=== PATIENT | female | born 1940 | race Caucasian/White ===

== ENCOUNTER 2019-08-10 09:48 | Outpatient (CLI) | payer MEDICARE, SELFPAY ==
[2019-08-10 10:09] LABS: Hemoglobin A1C 6.9 % (<5.7)
[2019-08-10 10:52] LABS: Alanine Aminotransferase 33 U/L (14-59); Alkaline Phosphatase 90 U/L (46-116); Anion Gap 12.1 mmol/L (7-16); Aspartate Amino Transferase 34 U/L (15-37); Bilirubin,Total 0.5 mg/dL (0.00-1.00); Blood Urea Nitrogen 15 mg/dL (7-18); Calcium 9.6 mg/dL (8.5-10.1); Carbon Dioxide 30 mmol/L (21-32); Chloride 97 mmol/L (98-108); Cholesterol 157 mg/dL (0-200); Estimated Glomerular Filt Rate 58; Glucose 141 mg/dL (70-99); HDL Direct 68 mg/dL (40-60); LDL Cholesterol Calculated 63 mg/dL (<130); Osmolality Calculated 282 mOsm/kg (285-295); Potassium 4.1 mmol/L (3.5-5.1); Sodium 135 mmol/L (136-145); Total Protein 6.7 g/dL (6.4-8.2); Triglycerides 128 mg/dL (0-150)
== END 2019-08-10 09:49 | disposition home or self-care (01) ==
PROVIDERS: PCP Internal Medicine; Visit Provider Nurse Practitioner
DX: E78.5 Hyperlipidemia, unspecified (principal); E11.9 Type 2 diabetes mellitus without complications
CPT/HCPCS: 36415; 80053; 80061; 83036

== ENCOUNTER 2019-08-25 08:09 | Outpatient (CLI) | payer MEDICARE, BC, SELFPAY ==
--- NOTE | ~2019-08-25 | XR_ITS ---
XR knee LT 3V DATE: 08/25/2019 08:38 INDICATION: Knee pain TECHNIQUE: 3 views COMPARISON: 05/02/2018 left knee FINDINGS: Status post left knee arthroplasty with patellar resurfacing. There is moderate suprapatellar joint effusion. A popliteal cyst is suggested. No fracture or dislocation, periosteal reaction or bone destruction. IMPRESSION: Status post left knee arthroplasty with patellar resurfacing Moderate joint effusion, suspected popliteal cyst Reviewed, dictated and finalized at location B.
== END 2019-08-25 08:10 | disposition home or self-care (01) ==
LOC: CHSIMG 08:11
PROVIDERS: PCP Internal Medicine; Visit Provider Orthopaedic Surgery
DX: Z96.652 Presence of left artificial knee joint (principal)
CPT/HCPCS: 73562

== ENCOUNTER 2020-02-08 09:59 | Emergency (ER) | payer MEDICARE, BC, SELFPAY ==
[2020-02-08] VITALS (7 sets, daily range): BP systolic 110–136; BP diastolic 56–77; PULSE 94–111; RESP 8–21; TEMP 35.8; O2SAT 95–97
--- NOTE | ~2020-02-08 | XR_ITS ---
EXAMINATION: XR chest 1V portable EXAM DATE: 02/08/2020 10:41 INDICATION: cough, vomiting x 5 days. TECHNIQUE: Portable AP frontal chest x-ray was obtained. Comparison is made to prior examination from 08/23/2015. FINDINGS: The lungs are clear. There are no pleural effusions. Cardiomediastinal silhouette is norm al. There is no pneumothorax suspected. There are mild bony degenerative changes. IMPRESSION: No acute cardiopulmonary findings. Reviewed, dictated and finalized at location B. 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
--- NOTE | 2020-02-08 10:20 | ECG_ITS ---
Measurements Intervals [place] Rate: 110 P: 15 [place]: 120 QRS: -55 QRSD: 89 T: 54 QT: 328 QTc: 445 Interpretive Statements SINUS TACHYCARDIA LEFT AXIS DEVIATION POSSIBLE LEFT ATRIAL ENLARGEMENT INFERIOR INFARCT, AGE INDETERMINATE BASELINE ARTIFACT- II, III, AVR, AVL, AVF, V1-V3 ABNORMAL ECG Electronically Signed On 02-08-2020 10:54:34 SALES SUPPORT MANAGER by Morgan Fernandes D.O.
--- NOTE | 2020-02-08 10:46 | ED.WEAKNESS ---
HPI - Weakness General Chief complaint: Weakness Stated complaint: Week,can't eat,Sinus drainage, Sweats Time Seen by Provider: 02/08/20 10:25 Source: patient Mode of arrival: ambulatory Limitations: no limitations History of Present Illness HPI Narrative: 79-year-old woman with a history of type 2 diabetes, hypertension and dyslipidemia comes in today complaining of 5 days of vomiting, weakness, and sweats. She states that she has nasal congestion and a mild cough she thinks is from postnasal drainage. She has had nonbloody diarrhea for the last 2 or 3 days. she denies sick contacts, fever, recent antibiotics, shortness of breath, chest pain or pressure, abdominal pain, rash and dysuria. She states she has not been able to keep down any food for 5 days. MD Complaint: generalized weakness Onset (ago): day(s) (5) Duration: constant and progressively worsening Location: generalized Migration: none Severity: moderate Relieving factors: none Associated symptoms: nausea/vomiting Related Data Home Medications Medication Instructions Recorded Confirmed aspirin 81 mg tablet,delayed 81 mg PO DAILY 02/05/19 02/08/20 release calcium carbonate 600 mg(1,500 1 tablet PO DAILY 02/05/19 02/08/20 mg)-vitamin D3 800 unit chewable tablet cholecalciferol (vitamin D3) 25 1,000 unit PO DAILY 02/05/19 02/08/20 mcg (1,000 unit) capsule multivit with min-folic 1 tablet PO DAILY 02/05/19 02/08/20 acid-lutein 400 mcg-250 mcg chewable tablet Allergies Allergy/AdvReac Type Severity Reaction Status Date / Time No Known Allergies Allergy Verified 10/15/19 12:35 Review of Systems Constitutional: Constitutional: Denies chills, Denies fever(s) and Reports weakness Comments: Diaphoresis Eyes: Eyes: Denies change in vision and Denies photophobia ENT: Denies dysphagia, Reports nasal congestion and Denies sore throat Cardiovascular: Cardiovascular: Denies chest pain, Reports rapid heart rate and Denies radiating jaw, neck or arm pain Respiratory: Respiratory: Reports cough, Denies dyspnea and Denies wheezing Gastrointestinal: Gastrointestinal: Denies abdominal pain, Reports diarrhea, Reports nausea and Reports vomiting Genitourinary: Genitourinary: Denies nocturia and Denies dysuria Musculoskeletal: Musculoskeletal: Denies arthralgias and Denies joint swelling Integumentary/Breasts: Skin/Breast: Denies pruritus, Denies erythema and Denies rash Neurologic: Denies vertigo, Denies dizziness and Denies syncope Hematologic/Lymphatic: Hematologic/Lymphatic: Denies easy bleeding and Denies easy bruising Allergic/Immunologic: Allergic/Immunologic: Denies lip swelling and Denies tongue swelling PMFSH Past Medical History Medical History (Updated 02/08/20 @ 11:57 by Geoffrey Berrios MD) Depression Essential (primary) hypertension Gastro-esophageal reflux disease without esophagitis Hyperlipidemia Overweight Type 2 diabetes mellitus with other specified complication Vitamin D deficiency Surgical History Surgical History History of knee replacement S/P hardware removal Family History Family History Father Family history of malignant neoplasm Patient's father is Mother Patient's mother is in good health Other Family history of arthritis Hypertension Social History Social History Smoking status: Never smoker Alcohol intake: current Exam Const: General: alert Nutritional Appearance: obese Orientation/consciousness: patient oriented x3 Limitations: no limitations Other: mild acute distress HENMT: Head: normal to inspection Ears: external ears normal, TM's normal bilaterally and EAC's normal General nose exam: Normal nares present Face and sinus: normal facial exam Mouth: Yes moist mucous membranes Thro
[2020-02-08 10:51] LABS: Basophils Absolute Auto 0.02 K/mm3 (0.00-0.10); Basophils Percent Auto 0.3 % (0.0-1.0); Eosinophils Absolute Auto 0.06 K/mm3 (0.02-0.50); Immature Granulocyte Absolute 0.04 K/mm3 (0.00-0.00); Immature Granulocyte Percent A 0.7 % (0.0-0.0); Lymphocytes Absolute Auto 1.11 K/mm3 (1.10-4.50); Lymphocytes Percent Auto 18.5 % (18.0-42.0); Mean Corpuscular HGB Conc 33.3 g/dL (32.0-36.0); Mean Corpuscular Hemoglobin 28.7 pg (27.0-31.0); Mean Platelet Volume 8.6 fl (9.2-11.8); Monocytes Absolute Auto 0.44 K/mm3 (0.10-0.90); Monocytes Percent Auto 7.3 % (2.0-11.0); Neutrophils Absolute Auto 4.3 K/mm3 (1.7-7.2); Neutrophils Percent Auto 72.2 % (50.0-70.0); Platelet Count Result 169 K/mm3 (150-420); Red Blood Count 5.23 M/mm3 (4.20-5.40); Red Cell Distribution Width 12.9 % (11.6-14.4)
[2020-02-08 10:52] LABS: Add Urine Microscopic? YES; Appearance Urine Sl Cloudy (Clear); Bilirubin Urine 2+ (Negative); Blood Urine Negative (Negative); Color Urine Yellow (Yellow); Glucose Urine UA Negative (Negative); Ketones Urine 1+ (Negative); Leukocyte Esterase Ur 1+ LEU/UL (Negative); Nitrate Urine Negative (Negative); Protein Urine 1+ (Negative); Specific Grav Ur 1.025 (1.010-1.020); Urobilinogen Urine 0.2 mg/dL (0.2-1.0)
[2020-02-08 10:53] LABS: RBC Urine None seen /hpf (0-2)
[2020-02-08 10:54] LABS: Bacteria Urine 1+ /hpf; Renal Epithelial Cells Urine Few /hpf; Squamous Epithelial Cell Urine Few /hpf (Few)
--- NOTE | 2020-02-08 11:03 | PC.NURSE ---
Report given to Juan Giron
[2020-02-08 11:05] LABS: INR 0.9; Partial Thromboplastin Time 24.2 SEC (23.90-30.70); Prothrombin Time 10.4 Seconds (9.50-12.10)
[2020-02-08] MEDS: SODIUM CHLORIDE 0.9% IV 1,000 ML 999 ML IV CONT (11:05)
[2020-02-08 11:09] LABS: Lactic Acid Reflex 2.5 mmol/L (0.4-2.0)
[2020-02-08 11:10] LABS: Alanine Aminotransferase 55 U/L (14-59); Albumin Level 4.2 g/dL (3.4-5.0); Alkaline Phosphatase 91 U/L (46-116); Anion Gap 11 mmol/L (8-16); Aspartate Amino Transferase 57 U/L (15-37); Bilirubin,Total 0.7 mg/dL (0.00-1.00); Blood Urea Nitrogen 18 mg/dL (7-18); CRP 0.5 mg/dL (0.0-0.9); Calcium 9.6 mg/dL (8.5-10.1); Carbon Dioxide 29 mmol/L (21-32); Chloride 94 mmol/L (98-108); Estimated CRCL calculation 34 ml/min; Estimated Glomerular Filt Rate 40; Glucose 203 mg/dL (70-99); Lipase 168 U/L (73-393); Osmolality Calculated 285 mOsm/kg (285-295); Potassium 3.4 mmol/L (3.5-5.1); SARS-CoV-2 Ag Positive (Negative); Sodium 134 mmol/L (136-145); Total Protein 7.5 g/dL (6.4-8.2); Troponin I 6.7 ng/L (0.00-60.4)
[2020-02-08 11:24] LABS: Influenza Control Valid (Valid)
[2020-02-08] MEDS: ONDANSETRON HCL ODT 4 MG TABLET PO (11:45)
--- NOTE | 2020-02-08 12:06 | PC.NURSE ---
Pt drinking oral fluids. pt states she feels comfortably going home and will return with any worsening of symptoms or concerns
[2020-02-08 13:46] LABS: Reflex Lactic Acid Yes or No Add Lactic
== END 2020-02-08 12:14 | disposition home or self-care (01) ==
LOC: CHSED 10:04
PROVIDERS: Emergency Provider Emergency Medicine; PCP Internal Medicine
DX: U07.1 COVID-19 (principal); E86.0 Dehydration; I10 Essential (primary) hypertension; K21.9 Gastro-esophageal reflux disease without esophagitis; E78.5 Hyperlipidemia, unspecified; E11.9 Type 2 diabetes mellitus without complications; E55.9 Vitamin D deficiency, unspecified
CPT/HCPCS: 36415; 71045; 80053; 81001; 83605; 83690; 84484; 85025; 85610; 85730; 86140; 87040; 87086; 87426; 87804; 93005; 96360; 99284; A9270; J7030

== ENCOUNTER 2020-04-11 09:39 | Outpatient (CLI) | payer MEDICARE, BC, SELFPAY ==
[2020-04-11 10:04] LABS: MALB Creatinine Ratio 12.3 mg/g (0-30); Microalbumin Urine Random < 13.0 mg/L
[2020-04-11 10:08] LABS: Hemoglobin A1C 6.6 % (<5.7)
[2020-04-11 10:30] LABS: Alanine Aminotransferase 37 U/L (14-59); Albumin Level 4.1 g/dL (3.4-5.0); Alkaline Phosphatase 84 U/L (46-116); Anion Gap 11 mmol/L (8-16); Aspartate Amino Transferase 32 U/L (15-37); Bilirubin,Total 0.5 mg/dL (0.00-1.00); Blood Urea Nitrogen 18 mg/dL (7-18); Calcium 9.9 mg/dL (8.5-10.1); Carbon Dioxide 28 mmol/L (21-32); Chloride 97 mmol/L (98-108); Cholesterol 166 mg/dL (0-200); Estimated Glomerular Filt Rate > 60; Glucose 161 mg/dL (70-99); HDL Direct 72 mg/dL (40-60); LDL Cholesterol Calculated 61 mg/dL (<130); Osmolality Calculated 286 mOsm/kg (285-295); Potassium 4.1 mmol/L (3.5-5.1); Sodium 136 mmol/L (136-145); Total Protein 6.9 g/dL (6.4-8.2); Triglycerides 163 mg/dL (0-150)
== END 2020-04-11 09:40 | disposition home or self-care (01) ==
LOC: CHSLAB 09:43
PROVIDERS: PCP Internal Medicine; Visit Provider Internal Medicine
DX: E78.5 Hyperlipidemia, unspecified (principal); E11.69 Type 2 diabetes mellitus with other specified complication; I10 Essential (primary) hypertension; E66.9 Obesity, unspecified
CPT/HCPCS: 36415; 80053; 80061; 82043; 83036

== ENCOUNTER 2020-10-12 09:34 | Outpatient (CLI) | payer MEDICARE, SELFPAY ==
[2020-10-12 10:16] LABS: Hemoglobin A1C 6.8 % (<5.7)
[2020-10-12 10:53] LABS: Alanine Aminotransferase 41 U/L (14-59); Albumin Level 4.2 g/dL (3.4-5.0); Alkaline Phosphatase 97 U/L (46-116); Anion Gap 10 mmol/L (8-16); Aspartate Amino Transferase 29 U/L (15-37); Bilirubin,Total 0.4 mg/dL (0.00-1.00); Blood Urea Nitrogen 17 mg/dL (7-18); Calcium 9.6 mg/dL (8.5-10.1); Carbon Dioxide 30 mmol/L (21-32); Chloride 101 mmol/L (98-108); Cholesterol 181 mg/dL (0-200); Estimated Glomerular Filt Rate 57; Glucose 156 mg/dL (70-99); HDL Direct 67 mg/dL (40-60); LDL Cholesterol Calculated 79 mg/dL (<130); Osmolality Calculated 296 mOsm/kg (285-295); Potassium 4.2 mmol/L (3.5-5.1); Sodium 141 mmol/L (136-145); Total Protein 7.1 g/dL (6.4-8.2); Triglycerides 174 mg/dL (0-150)
[2020-10-15 06:45] LABS: Vitamin D 25 Hydroxy 38 ng/mL (30-100)
== END 2020-10-12 09:35 | disposition home or self-care (01) ==
LOC: CHSLAB 09:38
PROVIDERS: PCP Internal Medicine; Visit Provider Internal Medicine
DX: E11.69 Type 2 diabetes mellitus with other specified complication (principal); I10 Essential (primary) hypertension; E78.5 Hyperlipidemia, unspecified; E55.9 Vitamin D deficiency, unspecified
CPT/HCPCS: 36415; 80053; 80061; 82306; 83036

== ENCOUNTER 2020-10-21 10:50 | Outpatient (CLI) | payer MEDICARE, BC, SELFPAY ==
--- NOTE | ~2020-10-21 | MM_ITS ---
EXAMINATION: MM screening melina BI w deondre HISTORY: Screening TECHNIQUE: Craniocaudal and mediolateral oblique 3-D tomosynthesis images were obtained and synthetic 2-D images were generated. CAD analysis was submitted and interpreted. COMPARISON: Comparison to multiple prior studies sequentially, with oldest reviewed study dated 08/16. BREAST PARENCHYMAL COMPOSITION: There are scattered areas of fibroglandular density. FINDINGS: There is no evidence of suspicious mass, calcification, or architectural distortion to sugg est malignancy in either breast. There has been no suspicious interval change. IMPRESSION: 1. No mammographic evidence of malignancy. 2. Recommend routine screening mammography in one year. BI-RADS Category 1: Negative Reviewed, dictated and finalized at location A.
== END 2020-10-21 10:51 | disposition home or self-care (01) ==
LOC: CHSIMG 10:51
PROVIDERS: PCP Internal Medicine; Visit Provider Internal Medicine
DX: Z12.31 Encounter for screening mammogram for malignant neoplasm of breast (principal)
CPT/HCPCS: 77063; 77067

== ENCOUNTER 2020-10-25 10:42 | Outpatient (CLI) | payer MEDICARE, BC, SELFPAY ==
--- NOTE | ~2020-10-25 | XR_ITS ---
EXAMINATION: XR shoulder RT min 2V EXAM DATE: 10/25/2020 11:21 INDICATION: M79.603 - Pain in arm, unspecified . No known recent injury. TECHNIQUE: The following right shoulder projections obtained: frontal projection with internal rotati on, frontal projection with external rotation, Grashey, and scapular Y view (4+ views). Correlation i s made to contralateral shoulder same date. FINDINGS: No evidence of right shoulder rotator cuff calcific tendinosis. There is moderate glenoh umeral joint, moderate acromioclavicular joint primary osteoarthritis. There are no acute fractures o r dislocations identified. There is no subcutaneous gas. The soft tissue is unremarkable. There a re no radiopaque foreign bodies. IMPRESSION: Moderate right shoulder osteoarthritis. Reviewed, dictated and finalized at location A.
--- NOTE | ~2020-10-25 | XR_ITS ---
EXAMINATION: XR shoulder LT min 2V EXAM DATE: 10/25/2020 11:21 INDICATION: No known recent injury provided at this time. Pain of the left shoulder. TECHNIQUE: The following left shoulder projections obtained: frontal projection with internal rotatio n, frontal projection with external rotation, Grashey, and scapular Y view (4+ views). Correlation is made to contralateral shoulder same date. FINDINGS: No evidence of left shoulder rotator cuff calcific tendinosis. There is mild to moderate glenohumeral joint, mild to moderate acromioclavicular joint primary osteoarthritis. There are no ac sindy fractures or dislocations identified. There is no subcutaneous gas. The soft tissue is unremark able. There are no radiopaque foreign bodies. IMPRESSION: Mild to moderate left shoulder osteoarthritis. Reviewed, dictated and finalized at location A.
[2020-10-25 11:41] LABS: Creatine Kinase 42 U/L (26-192)
[2020-10-25 13:31] LABS: CRP < 0.2 mg/dL (0.0-0.9)
[2020-10-28 22:41] LABS: Aldolase 3.2 U/L (<=8.1)
== END 2020-10-25 10:43 | disposition home or self-care (01) ==
LOC: CHSLAB 10:45
PROVIDERS: PCP Internal Medicine; Visit Provider Internal Medicine
DX: M79.10 Myalgia, unspecified site (principal); M79.603 Pain in arm, unspecified
CPT/HCPCS: 36415; 73030; 82085; 82550; 86140

== ENCOUNTER 2020-10-31 10:49 | Outpatient (RCR) | payer MEDICARE, BC, SELFPAY ==
--- NOTE | 2020-10-31 11:44 | PTOPEVAL ---
Thank you for referring Judy Randle to [facility].? The patient is scheduled to be seen for therapy? ____x/week for ___ weeks. Please review, sign, date and return this plan of care TISH. I agree with and certify that the following plan of care is medically necessary. Referring Physician Date Admitting Provider: Attending Provider: Gurpreet Vines DO Referring Provider: *PT Outpatient Evaluation Start: 10/31/20 11:06 Freq: Status: Active Protocol: Document 10/31/20 11:07 [facility] (Rec: 10/31/20 11:43 [facility] [id number]) Therapy Assessment Status Assessment Status Assessment Status Evaluation Outpatient Past Medical History Reproductive History Hx Post Menopausal Yes Evaluation Information Problem Diagnosis shoulder pain, arm pain, neck pain Onset 10/27/20 Additional Evaluation Detail quick dash = 36% functionally declined Subjective Information patient reports she has been Query Text:As Reported By Patient/ having pain in the arms (left Family more than the R) for about 2 months. she reports she has difficulty reaching for her seatbelt, doing her hair, and pulling her shirt off to undress. she reports when does these activities she has pain in the lateral shoulder/arm. she reports her pain is worse through the day. she reports for the first time this past weekend she had pain radiate into the head (back of head) - dull aches in random spots. Prior Level of Function Comments Additional Prior Level of Function prior to a few months ago, no Comments issues in the shoulder/arms/ head. she reports no injury. she reports change in activity . she reports she has recently had blood work done and was negative for any abnormal results/new changes. Pain Assessment Timing of Pain Assessment Timing of Pain Assessment Assessment Pain Scale Pain Scale Used Numeric (1 - 10) Self Report Pain Assessment Shoulder(s) Reported Pain Level 5 Pain Frequency Acute,Continuous Greatest Pain Intensity 8 Pain Score Pain Score 5: Self Report Interventions Used Interventions Used By Clinicians Micheline
--- NOTE | 2020-10-31 12:21 | PTOPEVAL ---
Thank you for referring Judy Randle to [facility] [place].? The patient is scheduled to be seen for therapy? ____x/week for ___ weeks. Please review, sign, date and return this plan of care TISH. I agree with and certify that the following plan of care is medically necessary. Referring Physician Date Admitting Provider: Attending Provider: Gurpreet Vines DO Referring Provider: *PT Outpatient Evaluation Start: 10/31/20 11:06 Freq: Status: Active Protocol: Document 10/31/20 11:07 [facility] (Rec: 10/31/20 11:43 [facility] [id number]) Therapy Assessment Status Assessment Status Assessment Status Evaluation Outpatient Past Medical History Reproductive History Hx Post Menopausal Yes Evaluation Information Problem Diagnosis shoulder pain, arm pain, neck pain Onset 10/27/20 Additional Evaluation Detail quick dash = 36% functionally declined Subjective Information patient reports she has been Query Text:As Reported By Patient/ having pain in the arms (left Family more than the R) for about 2 months. she reports she has difficulty reaching for her seatbelt, doing her hair, and pulling her shirt off to undress. she reports when does these activities she has pain in the lateral shoulder/arm. she reports her pain is worse through the day. she reports for the first time this past weekend she had pain radiate into the head (back of head) - dull aches in random spots. Prior Level of Function Comments Additional Prior Level of Function prior to a few months ago, no Comments issues in the shoulder/arms/ head. she reports no injury. she reports change in activity . she reports she has recently had blood work done and was negative for any abnormal results/new changes. Pain Assessment Timing of Pain Assessment Timing of Pain Assessment Assessment Pain Scale Pain Scale Used Numeric (1 - 10) Self Report Pain Assessment Shoulder(s) Reported Pain Level 5 Pain Frequency Acute,Continuous Greatest Pain Intensity 8 Pain Score Pain Score 5: Self Report Interventions Used Interventions Used By Clinicians Micheline
--- NOTE | 2020-11-17 17:50 | PTOPEVAL ---
Thank you for referring Judy Randle to [facility].? The patient is scheduled to be seen for therapy? ____x/week for ___ weeks. Please review, sign, date and return this plan of care TISH. I agree with and certify that the following plan of care is medically necessary. Referring Physician Date Admitting Provider: Attending Provider: Gurpreet Vines DO Referring Provider: *PT Outpatient Evaluation Start: 10/31/20 11:06 Freq: Status: Active Protocol: Document 11/17/20 17:03 [facility] (Rec: 11/17/20 17:50 [facility] [id number]) Therapy Assessment Status Assessment Status Assessment Status Progress Outpatient Past Medical History Reproductive History Hx Post Menopausal Yes Evaluation Information Problem Diagnosis shoulder pain, arm pain, neck pain Onset 10/27/20 Subjective Information patient reports she feels Query Text:As Reported By Patient/ Good this date. she reports Family pain only with certain movements now of the L shoulder. she reports fatigue in the L shoulder with lifting . she reports she struggles to reach behind her head. Pain Assessment Timing of Pain Assessment Timing of Pain Assessment Assessment Pain Scale Pain Scale Used Numeric (1 - 10) Self Report Pain Assessment Shoulder(s) Reported Pain Level 0 Greatest Pain Intensity 2 Pain Score Pain Score 0: Self Report Interventions Used Interventions Used By Clinicians Activity or ADL's,Education, Electrical Stimulation, Exercise,Heat,Manual Therapy Techniques Upper Extremity Range of Motion Scapular/ Shoulder Range of Motion Left Shoulder Flexion - Active 155 Shoulder Lateral Rotation - Active 80 Upper Extremity Muscle Strength Testing Scapular/Shoulder Left Shoulder Flexion Strength 4+ Good + Shoulder Abduction Strength 4+ Good + Shoulder Medial Rotation Strength 5 Normal Shoulder Lateral Rotation Strength 4+ Good + General Exercise General Exercises Exercise Description -5 minutes passive L shoulder Query Text:Record Sets, Reps, ROM Resistance, and Position -bicep curls 3lb x25 -bent over row 6lb x20 -standing shoulder flex/scap 2lb x 20 ea -Tband scap retraction green x 20 -tband extension green x 20 -pulleys x 5 min
== END 2020-12-01 13:26 | disposition home or self-care (01) ==
LOC: CHSPT 10:49
PROVIDERS: Visit Provider Internal Medicine
DX: S43.499A Other sprain of unspecified shoulder joint, initial encounter (principal); S46.819A Strain of other muscles, fascia and tendons at shoulder and upper arm level, unspecified arm, initial encounter
CPT/HCPCS: 97014; 97110; 97161; G0283

== ENCOUNTER 2020-11-22 11:15 | Outpatient (CLI) | payer MEDICARE, SELFPAY ==
[2020-11-22 11:28] LABS: Basophils Absolute Auto 0.06 K/mm3 (0.00-0.10); Basophils Percent Auto 0.7 % (0.0-1.0); Eosinophils Absolute Auto 0.18 K/mm3 (0.02-0.50); Eosinophils Percent Auto 2.2 % (1.0-6.0); Hemoglobin 14.5 g/dL (11.7-13.8); Immature Granulocyte Absolute 0.03 K/mm3 (0.00-0.00); Immature Granulocyte Percent A 0.4 % (0.0-0.0); Lymphocytes Absolute Auto 2.45 K/mm3 (1.10-4.50); Lymphocytes Percent Auto 29.6 % (18.0-42.0); Mean Corpuscular HGB Conc 33.7 g/dL (32.0-36.0); Mean Corpuscular Hemoglobin 28.8 pg (27.0-31.0); Mean Corpuscular Volume 85.5 fL (78.0-102.0); Mean Platelet Volume 8.2 fl (9.2-11.8); Monocytes Absolute Auto 0.66 K/mm3 (0.10-0.90); Neutrophils Absolute Auto 4.9 K/mm3 (1.7-7.2); Neutrophils Percent Auto 59.1 % (50.0-70.0); Platelet Count Result 267 K/mm3 (150-420); Red Blood Count 5.03 M/mm3 (4.20-5.40); Red Cell Distribution Width 12.2 % (11.6-14.4); White Blood Count 8.3 K/mm3 (4.8-10.8)
== END 2020-11-22 11:16 | disposition home or self-care (01) ==
LOC: CHSLAB 11:18
PROVIDERS: PCP Internal Medicine; Visit Provider Internal Medicine
DX: R53.83 Other fatigue (principal)
CPT/HCPCS: 36415; 85025

== ENCOUNTER 2021-04-19 11:19 | Outpatient (CLI) | payer MEDICARE, SELFPAY ==
[2021-04-19 11:55] LABS: Hemoglobin A1C 7.1 % (<5.7)
[2021-04-19 12:16] LABS: Alanine Aminotransferase 39 U/L (14-59); Albumin Level 4.1 g/dL (3.4-5.0); Alkaline Phosphatase 92 U/L (46-116); Anion Gap 9 mmol/L (8-16); Aspartate Amino Transferase 30 U/L (15-37); Bilirubin,Total 0.5 mg/dL (0.00-1.00); Blood Urea Nitrogen 15 mg/dL (7-18); Calcium 9.5 mg/dL (8.5-10.1); Carbon Dioxide 29 mmol/L (21-32); Chloride 100 mmol/L (98-108); Cholesterol 175 mg/dL (0-200); Estimated Glomerular Filt Rate > 60; Glucose 166 mg/dL (70-99); HDL Direct 70 mg/dL (40-60); LDL Cholesterol Calculated 73 mg/dL (<130); Osmolality Calculated 290 mOsm/kg (285-295); Potassium 4.1 mmol/L (3.5-5.1); Sodium 138 mmol/L (136-145); Thyroid Stimulating Hormone 1.29 uIU/mL (0.36-3.74); Total Protein 6.8 g/dL (6.4-8.2); Triglycerides 158 mg/dL (0-150)
== END 2021-04-19 11:20 | disposition home or self-care (01) ==
LOC: CHSLAB 11:21
PROVIDERS: PCP Internal Medicine; Visit Provider Internal Medicine
DX: E11.69 Type 2 diabetes mellitus with other specified complication (principal); I10 Essential (primary) hypertension; E66.9 Obesity, unspecified; E78.5 Hyperlipidemia, unspecified; R53.83 Other fatigue
CPT/HCPCS: 36415; 80053; 80061; 83036; 84443

== ENCOUNTER 2021-10-02 13:42 | Emergency (ER) | payer MEDICARE, BC, SELFPAY ==
--- NOTE | ~2021-10-02 | XR_ITS ---
EXAMINATION: XR chest 1V portable INDICATION: Shortness of breath TECHNIQUE: Portable AP chest at 1439 hours COMPARISON: 02/08/2020 FINDINGS: There are minimal airspace opacities in the left lung base. No pleural effusion or pneumoth orax. The cardiomediastinal silhouette is normal. There is moderate osteoarthritis of the shoulders. IMPRESSION: 1. Minimal airspace opacities of the left lung base, consistent with atelectasis versus pneumonia. Reviewed, dictated and finalized at location A. IMPRESSION: 1. Minimal airspace opacities of the left lung base, consistent with atelectasi s versus pneumonia.
[2021-10-02 13:59] VITALS: BP 156/68; PULSE 106; RESP 16; TEMP 35.7; O2SAT 99
--- NOTE | 2021-10-02 14:13 | ED.GENADULT ---
HPI - General Adult General Chief complaint: Urogenital-Female Stated complaint: Urinary issue History of Present Illness HPI narrative: This is an 81-year-old female, NAD of the chief complaint of feeling like shit. Patient states since Saturday she has been feeling fatigued with decreased oral intake. At Saturday night she noticed that throughout the night she had increased urinary urgency and frequency and frequently cannot make it to the bathroom in time she urinated. When she woke this morning she did have 3-4 episodes of non-bloody diarrhea. She denies shortness of breath, chest pain, fever, chills, productive cough, abdominal pain. Patient denies sick contacts at home. She has been vaccinated against COVID with multiple blisters. She has history of UTIs. Related Data Home Medications Medication Instructions Recorded Confirmed aspirin 81 mg tablet,delayed 81 mg PO DAILY 02/05/19 10/02/21 release calcium carbonate 600 mg-vitamin 1 tablet PO DAILY 02/05/19 10/02/21 D3 20 mcg (800 unit) chewable tablet (Caltrate 600 plus D) cholecalciferol (vitamin D3) 25 1,000 unit PO DAILY 02/05/19 10/02/21 mcg (1,000 unit) capsule (Vitamin D3) multivit with min-folic 1 tablet PO DAILY 02/05/19 10/02/21 acid-lutein 400 mcg-250 mcg chewable tablet (Centrum Silver) Allergies Allergy/AdvReac Type Severity Reaction Status Date / Time No Known Allergies Allergy Verified 10/02/21 14:10 Review of Systems Review of Systems: CONSTITUTIONAL: Denies night sweats. EYES: No eye pain ENT: Denies rhinorrhea CARDIOVASCULAR: Denies palpitations RESPIRATORY: Denies hemoptysis GASTROINTESTINAL: Denies hematemesis GENITOURINARY: Denies hematuria. SKIN: Denies rash MUSCULOSKELETAL: Denies myalgia. NEUROLOGIC: Denies weakness. PSYCHIATRIC: Denies delusions PMFSH Past Medical History Medical History Depression Essential (primary) hypertension Gastro-esophageal reflux disease without esophagitis Hyperlipidemia Overweight Type 2 diabetes mellitus with other specified complication Vitamin D deficiency Surgical History Surgical History History of knee replacement S/P hardware removal Family History Family History Father Family history of malignant neoplasm Patient's father is Mother Patient's mother is in good health Other Family history of arthritis Hypertension Social History Social History Smoking status: Never smoker Second hand tobacco smoke exposure: Yes Alcohol intake: current Alcohol use details: occasional Substance use: never Substance use type: does not use Exam Narrative: APPEARANCE: Patient appears her stated age. She is planned for later in the interview. Head atraumatic. EYES: PERRLA/EOMI, NOSE: Normal no drainage NECK: Supple, Trachea midline RESPIRATORY: CTAB, No increased work of breathing. CARDIOVASCULAR: S1S2 appreciated ABDOMINAL: Soft, nontender, nondistended, : no suprapubic tenderness, no CVA tenderness MUSCULOSKELETAl: No obvious deformities NEURO: Alert. Moving 4/4 extremities SKIN:: Clammy PSYCHIATRIC: Normal affect Course Vital Signs Vital signs: Vital Signs Temperature 96.3 F L 10/02/21 13:59 Pulse Rate 106 H 10/02/21 13:59 Respiratory Rate 16 10/02/21 13:59 Blood Pressure 156/68 H 10/02/21 13:59 Pulse Oximetry 99 10/02/21 13:59 Oxygen Delivery Room Air 10/02/21 13:59 Temperature 96.3 F L 10/02/21 13:59 Pulse Rate 106 H 10/02/21 13:59 Respiratory Rate 16 10/02/21 13:59 Blood Pressure 156/68 H 10/02/21 13:59 Pulse Oximetry 99 10/02/21 13:59 Oxygen Delivery Room Air 10/02/21 13:59 Medical Decision Making MDM Narrative Medical decision making narrativ
--- NOTE | 2021-10-02 14:17 | ECG_ITS ---
Measurements Intervals [place] Rate: 93 P: 37 [place]: 142 QRS: -35 QRSD: 85 T: 24 QT: 339 QTc: 423 Interpretive Statements SINUS RHYTHM LEFT AXIS DEVIATION [QRS AXIS < -30] PATTERN CONSISTENT WITH PULMONARY DISEASE Cannot rule out inferior infarction ABNORMAL EKG Electronically Signed On 10-03-2021 8:41:25 CDT by Vamsi Edge M.D.
[2021-10-02 14:31] LABS: Basophils Absolute Auto 0.04 K/mm3 (0.00-0.10); Basophils Percent Auto 0.4 % (0.0-1.0); Eosinophils Absolute Auto 0.04 K/mm3 (0.02-0.50); Eosinophils Percent Auto 0.4 % (1.0-6.0); Hematocrit 39.9 % (35.0-42.0); Hemoglobin 13.6 g/dL (11.7-13.8); Immature Granulocyte Absolute 0.06 K/mm3 (0.00-0.00); Immature Granulocyte Percent A 0.7 % (0.0-0.0); Lymphocytes Absolute Auto 1.08 K/mm3 (1.10-4.50); Lymphocytes Percent Auto 11.8 % (18.0-42.0); Mean Corpuscular HGB Conc 34.1 g/dL (32.0-36.0); Mean Corpuscular Hemoglobin 29.3 pg (27.0-31.0); Mean Platelet Volume 8.5 fl (9.2-11.8); Monocytes Absolute Auto 0.89 K/mm3 (0.10-0.90); Monocytes Percent Auto 9.8 % (2.0-11.0); Neutrophils Percent Auto 76.9 % (50.0-70.0); Platelet Count Result 199 K/mm3 (150-420); Red Blood Count 4.64 M/mm3 (4.20-5.40); Red Cell Distribution Width 12.4 % (11.6-14.4); White Blood Count 9.1 K/mm3 (4.8-10.8)
[2021-10-02 14:40] LABS: Anion Gap 9 mmol/L (8-16); Blood Urea Nitrogen 15 mg/dL (7-18); Calcium 9.2 mg/dL (8.5-10.1); Carbon Dioxide 27 mmol/L (21-32); Chloride 93 mmol/L (98-108); Estimated Glomerular Filt Rate 49; Glucose 214 mg/dL (70-99); Osmolality Calculated 274 mOsm/kg (285-295); Potassium 3.3 mmol/L (3.5-5.1); Sodium 129 mmol/L (136-145)
[2021-10-02 14:48] LABS: SARS-CoV-2 Ag Negative (Negative)
[2021-10-02] MEDS: SODIUM CHLORIDE 0.9% IV 1,000 ML 999 ML IV CONT (14:48)
[2021-10-02 15:34] LABS: Add Urine Microscopic? YES; Appearance Urine Turbid (Clear); Bilirubin Urine 2+ (Negative); Blood Urine 2+ (Negative); Color Urine Yellow (Yellow); Glucose Urine UA Trace (Negative); Ketones Urine Trace (Negative); Leukocyte Esterase Ur 2+ LEU/UL (Negative); Nitrate Urine Positive (Negative); Protein Urine 2+ (Negative); Specific Grav Ur >= 1.030 (1.010-1.020); pH Urine 5.5 (5.0-8.0)
[2021-10-02 15:37] LABS: Bacteria Urine 2+ /hpf; Renal Epithelial Cells Urine Few /hpf; Squamous Epithelial Cell Urine Few /hpf (Few); WBC Urine >75 /hpf (0-3)
[2021-10-02] MEDS: POTASSIUM CHLORIDE 20 MEQ TABLET 40 MEQ PO (15:52)
[2021-10-02] MEDS: CEPHALEXIN 500 MG CAPSULE PO (15:53)
[2021-10-02 16:11] VITALS: BP 115/80; PULSE 94; RESP 16; TEMP 36.4; O2SAT 98
--- NOTE | 2021-10-04 17:45 | PC.NURSE ---
final urine culture report of greater than 100,000 cfu e. coli noted. pt was given keflex and as per Dr Knutson no further tx needed.
== END 2021-10-02 16:16 | disposition home or self-care (01) ==
PROVIDERS: Emergency Provider Emergency Medicine; PCP Internal Medicine
DX: N39.0 Urinary tract infection, site not specified (principal); E86.0 Dehydration; E87.6 Hypokalemia; R19.7 Diarrhea, unspecified; Z20.822 Contact with and (suspected) exposure to COVID-19; I10 Essential (primary) hypertension; K21.9 Gastro-esophageal reflux disease without esophagitis; E78.5 Hyperlipidemia, unspecified; E11.9 Type 2 diabetes mellitus without complications; E55.9 Vitamin D deficiency, unspecified
CPT/HCPCS: 36415; 71045; 80048; 81001; 85025; 87077; 87086; 87088; 87186; 87426; 93005; 96360; 99283; A9270; C9803; J7030

== ENCOUNTER 2021-10-28 09:49 | Outpatient (CLI) | payer MEDICARE, SELFPAY ==
[2021-10-28 10:22] LABS: Basophils Absolute Auto 0.05 K/mm3 (0.00-0.10); Basophils Percent Auto 0.7 % (0.0-1.0); Eosinophils Absolute Auto 0.27 K/mm3 (0.02-0.50); Eosinophils Percent Auto 3.8 % (1.0-6.0); Hematocrit 41.8 % (35.0-42.0); Hemoglobin 13.8 g/dL (11.7-13.8); Immature Granulocyte Absolute 0.03 K/mm3 (0.00-0.00); Immature Granulocyte Percent A 0.4 % (0.0-0.0); Lymphocytes Absolute Auto 2.95 K/mm3 (1.10-4.50); Lymphocytes Percent Auto 41.7 % (18.0-42.0); Mean Corpuscular Hemoglobin 28.6 pg (27.0-31.0); Mean Corpuscular Volume 86.7 fL (78.0-102.0); Mean Platelet Volume 8.7 fl (9.2-11.8); Monocytes Absolute Auto 0.53 K/mm3 (0.10-0.90); Monocytes Percent Auto 7.5 % (2.0-11.0); Neutrophils Absolute Auto 3.2 K/mm3 (1.7-7.2); Neutrophils Percent Auto 45.9 % (50.0-70.0); Platelet Count Result 279 K/mm3 (150-420); Red Blood Count 4.82 M/mm3 (4.20-5.40); Red Cell Distribution Width 12.7 % (11.6-14.4); White Blood Count 7.1 K/mm3 (4.8-10.8)
[2021-10-28 10:30] LABS: Hemoglobin A1C 6.7 % (<5.7)
[2021-10-28 10:44] LABS: Alanine Aminotransferase 28 U/L (14-59); Alkaline Phosphatase 95 U/L (46-116); Anion Gap 10 mmol/L (8-16); Aspartate Amino Transferase 25 U/L (15-37); Bilirubin,Total 0.6 mg/dL (0.00-1.00); Blood Urea Nitrogen 16 mg/dL (7-18); Calcium 9.6 mg/dL (8.5-10.1); Carbon Dioxide 28 mmol/L (21-32); Chloride 96 mmol/L (98-108); Cholesterol 155 mg/dL (0-200); Estimated Glomerular Filt Rate 56; Glucose 149 mg/dL (70-99); HDL Direct 70 mg/dL (40-60); LDL Cholesterol Calculated 56 mg/dL (<130); Magnesium 1.7 mg/dL (1.8-2.4); NT Pro B Type Natriuretic Pept 63 pg/mL (0-450); Osmolality Calculated 282 mOsm/kg (285-295); Potassium 3.8 mmol/L (3.5-5.1); Sodium 134 mmol/L (136-145); Thyroid Stimulating Hormone 1.43 uIU/mL (0.36-3.74); Triglycerides 147 mg/dL (0-150)
== END 2021-10-28 09:50 | disposition home or self-care (01) ==
LOC: CHSLAB 09:52
PROVIDERS: PCP Internal Medicine; Visit Provider Internal Medicine
DX: E87.6 Hypokalemia (principal); I10 Essential (primary) hypertension; E11.9 Type 2 diabetes mellitus without complications; R60.9 Edema, unspecified; R06.00 Dyspnea, unspecified
CPT/HCPCS: 36415; 80053; 80061; 83036; 83735; 83880; 84443; 85025

== ENCOUNTER 2021-11-18 10:18 | Outpatient (CLI) | payer MEDICARE, SELFPAY ==
[2021-11-18 11:35] LABS: Add Urine Microscopic? YES; Appearance Urine Clear (Clear); Bilirubin Urine Negative (Negative); Blood Urine Negative (Negative); Color Urine Yellow (Yellow); Glucose Urine UA Negative (Negative); Ketones Urine Negative (Negative); Leukocyte Esterase Ur 1+ (Negative); Nitrate Urine Negative (Negative); Protein Urine Negative (Negative); Urobilinogen Urine 0.2 mg/dL (0.2-1.0)
[2021-11-18 11:40] LABS: RBC Urine None seen /hpf (0-2)
[2021-11-18 11:41] LABS: Bacteria Urine 1+ /hpf; Squamous Epithelial Cell Urine Moderate /hpf (Few)
== END 2021-11-18 10:19 | disposition home or self-care (01) ==
LOC: CHSLAB 10:20
PROVIDERS: PCP Internal Medicine; Visit Provider Internal Medicine
DX: E83.51 Hypocalcemia (principal); R60.9 Edema, unspecified; I10 Essential (primary) hypertension; E11.9 Type 2 diabetes mellitus without complications
CPT/HCPCS: 81001

== ENCOUNTER 2021-12-20 10:11 | Outpatient (CLI) | payer MEDICARE, BC, SELFPAY ==
--- NOTE | ~2021-12-20 | XR_ITS ---
XR lumbar spine 2-3V DATE: 12/20/2021 10:41 INDICATION: Low back pain radiating to right buttock for one week TECHNIQUE: AP, lateral, coned lateral lumbosacral views COMPARISON: None FINDINGS: There is mild levo scoliosis of the lumbar spine. There is severe degenerative disc disease throughout the lumbar and lower cervical spine with severe loss of interspace height, vacuum phenomenon and degenerative spurring. No fracture or bone destruction is evident. The lumbar and included lower thoracic pedicles are intac t. The sacroiliac joints are intact. Extensive abdominal aortic calcification without apparent aneurysm. 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
--- NOTE | ~2021-12-20 | XR_ITS ---
XR chest 2V DATE: 12/20/2021 10:42 INDICATION: Abnormal 10/02/2021 chest radiographic TECHNIQUE: PA and lateral views COMPARISON: 10/02/2021 portable AP chest FINDINGS: Normal heart size. Minimal aortic unfolding. Abdominal aortic calcification. No hilar or mediastinal enlargement. No pulmonary infiltrate or consolidation, pleural effusion or pulmonary vascular congestion or pneumo thorax. Diffuse osteopenia. Mild degenerative spurring of the thoracic spine. Multilevel degenerative disc di sease of the lumbar spine. IMPRESSION: No active cardiac pulmonary disease Reviewed, dictated and finalized at location A.
== END 2021-12-20 10:12 | disposition home or self-care (01) ==
PROVIDERS: PCP Internal Medicine; Visit Provider Internal Medicine
DX: R91.8 Other nonspecific abnormal finding of lung field (principal); M54.50 Low back pain, unspecified
CPT/HCPCS: 71046; 72100

== ENCOUNTER 2021-12-28 10:50 | Outpatient (RCR) | payer MEDICARE, BC, SELFPAY ==
--- NOTE | 2021-12-28 11:55 | PTOPEVAL1 ---
Assessment and note entered by JT File, PT Evaluation Information Assessment Status Evaluation Diagnosis R L5 Radiculopathy Onset 12/21/21 Subjective Information patient reports she has been having pain in the R buttock and down the R LE for about 3 weeks. she reports no injury at the time of pain beginning. she reports she did have a fall about 1 year ago. she reports she has increased pain in the R buttock and LE when she gets out of bed from laying flat on her back. she reports getting up from sitting is painful too, but less than getting out of bed. she reports it has been getting better over the past few weeks noting not as constant pain and less intense pain. she reports she was put on predisone does pack for 5 days beginning on 12/19/21. Reported Pain Level Pain Score 2: Self Report Assessment PT Clinical Summary mrs. vargas presents to skilled PT services for evaluation and treatment of R LE pain. she presents this date with signs and symptoms consistent with referring diagnosis of R L5 radiculopathy. she would do well to attend and participate in skilled PT services to improve her objective/functional deficits and progress towards a return to her prior level functional activity performance/quality of life. Plan of Care Interventions Electrical Stimulation,Gait Training,Hot Pack/Cold Pack,Manual Therapy,Neuro Re-education,Patient/ Caregiver Educati,Therapeutic Activities, Therapeutic Exercise PT Services Indicated Yes Treatment Frequency and 3x weekly for 12 visits Duration These treatments will address the objective and functional deficits as defined above. The patient will be advanced safely and appropriately in order for the patient to progress towards his/her prior level of function. Additional exercises will be introduced and as well as a comprehensive home exercise program upon discharge, if needed, ?to ensure carryover of functional gains achieved in the clinic. This treatment plan has been reviewed and agreement upon by the patient.
--- NOTE | 2022-02-01 14:02 | PTOPPROG ---
Assessment and note entered by Nolvia Martinez, PT Evaluation Information Assessment Status Progress Diagnosis R L5 Radiculopathy Onset 12/21/21 Subjective Information Judy reports she is getting better. She is noting no pain currently and reports she was able to stand to wash dishes earlier without pain. She also did laundry today without pain. She does still have occasional pain with walking for long periods. Pain at highest is now 4/10. Assessment PT Clinical Summary Judy Randle has completed 10 out of 12 skilled PT visits for right L5 radiculopathy. She is reporting less pain, improved ability to stand to wash dishes, and improved ability to do laundray. She does occasionally still have low back pain with prolonged walking. She objectively demonstrates improved lumbar ROM and resolved tenderness. She continues to have deficits in right hip strength and right hamstring flexibility . She will continue to benefit from skilled PT to further address these deficits and to wean her off modalities. PT Clinical Summary Judy Randle has completed 10 skilled physical therapy visits for right L5 radiculopathy . She reports ___. She objectively demonstrates improved ___. She continues to demonstrate ____. She will continue to benefit from skilled PT to further address ongoing deficits. Plan of Care Interventions Electrical Stimulation,Hot Pack/Cold Pack,Manual Therapy,Patient/Caregiver Educati,Therapeutic Exercise PT Services Indicated Yes Treatment Frequency and Continue skilled PT x 2 visits Duration These treatments will address the objective and functional deficits as defined above. The patient will be advanced safely and appropriately in order for the patient to progress towards his/her prior level of function. Additional exercises will be introduced and as well as a comprehensive home exercise program upon discharge, if needed, ?to ensure carryover of functional gains achieved in the clinic. This treatment plan has been reviewed and agreement upon by the patient.
--- NOTE | 2022-02-01 14:06 | PTOPPROG ---
Assessment and note entered by Nolvia Martinez, PT Evaluation Information Assessment Status Progress Diagnosis R L5 Radiculopathy Onset 12/21/21 Subjective Information Judy reports she is getting better. She is noting no pain currently and reports she was able to stand to wash dishes earlier without pain. She also did laundry today without pain. She does still have occasional pain with walking for long periods. Pain at highest is now 4/10. Assessment PT Clinical Summary Judy Randle has completed 10 out of 12 skilled PT visits for right L5 radiculopathy. She is reporting less pain, improved ability to stand to wash dishes, and improved ability to do laundray. She does occasionally still have low back pain with prolonged walking. She objectively demonstrates improved lumbar ROM and resolved tenderness. She continues to have deficits in right hip strength and right hamstring flexibility . She will continue to benefit from skilled PT to further address these deficits and to wean her off modalities. Plan of Care Interventions Electrical Stimulation,Hot Pack/Cold Pack,Manual Therapy,Patient/Caregiver Educati,Therapeutic Exercise PT Services Indicated Yes Treatment Frequency and Continue skilled PT x 2 visits Duration These treatments will address the objective and functional deficits as defined above. The patient will be advanced safely and appropriately in order for the patient to progress towards his/her prior level of function. Additional exercises will be introduced and as well as a comprehensive home exercise program upon discharge, if needed, ?to ensure carryover of functional gains achieved in the clinic. This treatment plan has been reviewed and agreement upon by the patient.
--- NOTE | 2022-02-07 11:11 | PTOPDC ---
Assessment and note entered by JT File, PT Evaluation Information Assessment Status Discharge Diagnosis R L5 Radiculopathy Onset 12/21/21 Subjective Information patient reports she feels Great this date. she reports no pain in the lower back. she reports she has no radicular symptoms. she reports she has been compliant with her HEP at home and no longer has problems with her lower back. Reported Pain Level Pain Score 0: Self Report Assessment PT Clinical Summary mrs. vargas presents to skilled PT services for her 12th skilled therapy visit this date. she has met more than 50% of goals for skilled PT. she is consistent and compliant with HEP at home. she would do well to DC skilled PT this date and continue with HEP independent at home. Plan of Care Treatment Frequency and DC to independent HEP Duration
== END 2022-03-28 23:59 | disposition home or self-care (01) ==
LOC: CHSPT 10:50
PROVIDERS: PCP Internal Medicine; Visit Provider Internal Medicine
DX: M54.17 Radiculopathy, lumbosacral region (principal)
CPT/HCPCS: 97014; 97110; 97161; G0283

== ENCOUNTER 2022-03-09 09:48 | Outpatient (CLI) | payer MEDICARE, BC, SELFPAY ==
[2022-03-09 10:15] LABS: Hemoglobin A1C 6.7 % (<5.7)
[2022-03-09 10:41] LABS: Alanine Aminotransferase 28 U/L (14-59); Albumin Level 4.2 g/dL (3.4-5.0); Alkaline Phosphatase 95 U/L (46-116); Anion Gap 10 mmol/L (8-16); Aspartate Amino Transferase 29 U/L (15-37); Bilirubin,Total 0.6 mg/dL (0.00-1.00); Blood Urea Nitrogen 16 mg/dL (7-18); Calcium 9.6 mg/dL (8.5-10.1); Carbon Dioxide 29 mmol/L (21-32); Chloride 97 mmol/L (98-108); Estimated Glomerular Filt Rate > 60; Glucose 173 mg/dL (70-99); Osmolality Calculated 287 mOsm/kg (285-295); Potassium 4.1 mmol/L (3.5-5.1); Sodium 136 mmol/L (136-145); Total Protein 6.9 g/dL (6.4-8.2)
== END 2022-03-09 09:49 | disposition home or self-care (01) ==
LOC: CHSLAB 09:51
PROVIDERS: PCP Internal Medicine; Visit Provider Internal Medicine
DX: I10 Essential (primary) hypertension (principal); E11.9 Type 2 diabetes mellitus without complications
CPT/HCPCS: 36415; 80053; 83036

== ENCOUNTER 2022-10-25 10:55 | Outpatient (CLI) | payer MEDICARE, SELFPAY ==
[2022-10-25 11:17] LABS: Hemoglobin A1C 6.4 % (<5.7)
[2022-10-25 11:34] LABS: Alanine Aminotransferase 26 U/L (14-59); Albumin Level 3.8 g/dL (3.4-5.0); Alkaline Phosphatase 99 U/L (46-116); Anion Gap 9 mmol/L (8-16); Aspartate Amino Transferase 26 U/L (15-37); Bilirubin,Total 0.8 mg/dL (0.00-1.00); Blood Urea Nitrogen 16 mg/dL (7-18); Carbon Dioxide 29 mmol/L (21-32); Chloride 97 mmol/L (98-108); Estimated Glomerular Filt Rate 57; Glucose 143 mg/dL (70-99); Osmolality Calculated 283 mOsm/kg (285-295); Potassium 4.2 mmol/L (3.5-5.1); Sodium 135 mmol/L (136-145); Total Protein 6.6 g/dL (6.4-8.2)
== END 2022-10-25 10:56 | disposition home or self-care (01) ==
LOC: CHSLAB 10:57
PROVIDERS: PCP Internal Medicine; Visit Provider Internal Medicine
DX: E11.65 Type 2 diabetes mellitus with hyperglycemia (principal)
CPT/HCPCS: 36415; 80053; 83036

== ENCOUNTER 2022-11-07 10:10 | Outpatient (CLI) | payer MEDICARE, BC, SELFPAY ==
--- NOTE | ~2022-11-07 | DEXA_ITS ---
Bone Density Report Name: RODNEY SANCHEZ Age: 82 Sex: Female Ethnicity: White Date of : 1940 Indication: postmenopausal; screening for osteoporosis; height loss; prior fracture; Referring Provider: Jay Weaver Study: Bone densitometry was performed. Exam Date: November 07, 2022 Accession number: [id number] Bone Density: Region BMD T-score Z-score Classification AP Spine(L1, L2, L3) 1.140 1.1 3.8 Normal Femoral Neck (Left) 0.631 -2.0 0.4 Osteopenia Total Hip (Left) 0.868 -0.6 1.6 Normal Femoral Neck (Right) 0.670 -1.6 0.8 Osteopenia Total Hip (Right) 0.810 -1.1 1.1 Osteopenia Femoral Neck Mean 0.651 -1.8 0.6 Osteopenia Total Hip Mean 0.839 -0.8 1.3 Normal World Health Organization criteria for BMD impression classify patients as: Normal (T-score at or above -1.0), Osteopenia (T-score between -1.0 and -2.5), or Osteoporosis (T-score at or below -2.5). 10-year Fracture Risk(1): Major Osteoporotic Fracture 21% Hip Fracture 5.6% Reported Risk Factors: [place] (), Neck BMD=0.631, BMI=32.1, previous fracture (1) FRAX(R) Version 3.08. Fracture probability calculated for an untreated patient. Fracture probability may be lower if the patient has received treatment. Clinical Information Provided by Patient: Has had a low trauma fracture Has used the following medications: Vitamin D, Calcium, multi Patient maximum height was 64 Menopause Age: 50 No regular weight bearing exercise Onset of menses at age 13 Number of children 0 Impression: The patient has low bone mass, based on the Left Femoral Neck T-score. The patient has risk factors, including: previous fracture. Discussion: BONE DENSITY IS LOW AT ONE OR MORE SKELETAL SITES. This patient's lowest T-score is low at one or more skeletal sites. It meets the World Health Organization's (WHO) criteria for ?low bone mass? (T-score between -1.0 and -2.5). The patient's 10-year risk of fracture as calculated by FRAX is less than the threshold where pharmacological therapy is recommended by the National Osteoporosis Foundation (NOF). However, all treatment decisions require clinical judgment and consideration of individual patient factors, including patient preferences, comorbidities, previous drug use, risk factors not captured in the FRAX model (e.g., frailty, falls, vitamin D deficiency, increased bone turnover, interval significant decline in bone density) and possible under or overestimation of fracture risk by FRAX. The patient should follow a healthful lifestyle (good nutrition with adequate calcium and vitamin D, and appropriate weight-bearing exercise). Follow-Up: Consider repeating this study in 2 to 3 years to reassess this patient's status, or sooner if there is some new clinical indication. Reported by: Dr. Jef Chavez on 11/07/2022 10:35:00 AM.
== END 2022-11-07 10:11 | disposition home or self-care (01) ==
LOC: CHSIMG 10:11
PROVIDERS: PCP Internal Medicine; Visit Provider Internal Medicine
DX: Z78.0 Asymptomatic menopausal state (principal); M85.89 Other specified disorders of bone density and structure, multiple sites
CPT/HCPCS: 77080

== ENCOUNTER 2023-04-30 08:19 | Outpatient (CLI) | payer MEDICARE, SELFPAY ==
[2023-04-30 08:36] LABS: Basophils Absolute Auto 0.04 K/mm3 (0.00-0.10); Basophils Percent Auto 0.5 % (0.0-1.0); Eosinophils Absolute Auto 0.23 K/mm3 (0.02-0.50); Eosinophils Percent Auto 2.7 % (1.0-6.0); Hematocrit 41.9 % (35.0-42.0); Hemoglobin 13.9 g/dL (11.7-13.8); Immature Granulocyte Absolute 0.05 K/mm3 (0.00-0.00); Immature Granulocyte Percent A 0.6 % (0.0-0.0); Lymphocytes Absolute Auto 3.73 K/mm3 (1.10-4.50); Lymphocytes Percent Auto 43.9 % (18.0-42.0); Mean Corpuscular HGB Conc 33.2 g/dL (32.0-36.0); Mean Corpuscular Hemoglobin 28.4 pg (27.0-31.0); Mean Corpuscular Volume 85.5 fL (78.0-102.0); Mean Platelet Volume 8.1 fl (9.2-11.8); Monocytes Absolute Auto 0.61 K/mm3 (0.10-0.90); Monocytes Percent Auto 7.2 % (2.0-11.0); Neutrophils Absolute Auto 3.8 K/mm3 (1.7-7.2); Neutrophils Percent Auto 45.1 % (50.0-70.0); Platelet Count Result 290 K/mm3 (150-420); Red Cell Distribution Width 12.2 % (11.6-14.4); White Blood Count 8.5 K/mm3 (4.8-10.8)
[2023-04-30 08:38] LABS: Appearance Urine Slightly Cloudy (Clear); Bilirubin Urine Negative (Negative); Blood Urine Trace-Intact (Negative); Color Urine Light Yellow (Yellow); Glucose Urine UA Negative (Negative); Ketones Urine Negative (Negative); Leukocyte Esterase Ur 2+ (Negative); Nitrate Urine Negative (Negative); Protein Urine Negative (Negative); Urobilinogen Urine 0.2 mg/dL (0.2-1.0)
[2023-04-30 08:44] LABS: Creatinine Urine 136.65 mg/dL (40-278); MALB Creatinine Ratio 14.5 mg/g (0-30); Microalbumin Urine Random 19.9 mg/L
[2023-04-30 08:46] LABS: Hemoglobin A1C 6.3 % (<5.7)
[2023-04-30 08:48] LABS: Add Urine Microscopic? YES; Bacteria Urine 2+ /hpf; RBC Urine 0-2 /hpf (0-2); Squamous Epithelial Cell Urine Few /hpf (Few)
[2023-04-30 09:35] LABS: Alanine Aminotransferase 31 U/L (14-59); Albumin Level 3.9 g/dL (3.4-5.0); Alkaline Phosphatase 90 U/L (46-116); Anion Gap 8 mmol/L (8-16); Aspartate Amino Transferase 25 U/L (15-37); Bilirubin,Total 0.5 mg/dL (0.00-1.00); Blood Urea Nitrogen 16 mg/dL (7-18); Calcium 9.4 mg/dL (8.5-10.1); Carbon Dioxide 31 mmol/L (21-32); Chloride 98 mmol/L (98-108); Cholesterol 177 mg/dL (0-200); Estimated Glomerular Filt Rate > 60; Glucose 129 mg/dL (70-99); HDL Direct 9 mg/dL (40-60); LDL Cholesterol Calculated 132 mg/dL (<130); Osmolality Calculated 287 mOsm/kg (285-295); Potassium 4.1 mmol/L (3.5-5.1); Sodium 137 mmol/L (136-145); Triglycerides 179 mg/dL (0-150)
[2023-04-30 09:47] LABS: Total Protein 6.6 g/dL (6.4-8.2)
== END 2023-04-30 08:20 | disposition home or self-care (01) ==
PROVIDERS: PCP Internal Medicine; Visit Provider Internal Medicine
DX: E78.5 Hyperlipidemia, unspecified (principal); E11.9 Type 2 diabetes mellitus without complications; I10 Essential (primary) hypertension
CPT/HCPCS: 36415; 80053; 80061; 81001; 82043; 83036; 84443; 85025

== ENCOUNTER 2023-09-12 14:13 | Outpatient (RCR) | payer MEDICARE, BC, SELFPAY ==
--- NOTE | 2023-09-12 15:10 | OPREHPOC ---
Outpatient Therapy Plan of Care This is a Multidisciplinary Plan of Care that may contain components documented by all disciplines (PT, OT, and ST.) PT Problem 1 PT Problem #1 Knowledge Deficit PT Goal 1 Goal 1. patient to be compliant with home linda to the L and sleeping position Target Visit 2 PT Problem 2 PT Problem #2 Impaired Functional Mobil PT Goal 1 Goal 1. patient to report elimination of all vertigo symptoms Target Visit 4
--- NOTE | 2023-09-12 15:10 | PTOPEVAL1 ---
Assessment and note entered by JT File, PT Evaluation Information Assessment Status Evaluation Diagnosis positional vertigo ICD-10 Condition Codes (PT) BPPV H81.12 Onset 09/09/23 Subjective Information patient reports he symptoms have been coming on for 6 months to a year. she reports she was really dizzy getting out of bed. she reports she has not been able to walk in a straight line in a long time. she reports she is dizzy when first waking up and sitting up in bed. she reports it feels like her head is spinning. she reports these symptoms last for a few minutes. she reports she does not feel she is going to pass out, but just feels she is not going to be able to stand up safely. she reports she has had one fall since these symptoms started. she reports she does take meds for blood pressure. she reports initially her MD though maybe the low blood pressure was the issues, but after adjusting meds there has been no change. Reported Pain Level Pain Score 0: Self Report Assessment PT Clinical Summary mrs. vargas is an 83 yo woman who presents to skilled PT services for evaluation of positional vertigo. she presents today with signs and symptoms of L BPPV. she also displays a high fall risk per the tinetti. she would benefit from continued skilled PT for BPPV treatment to get rid of vertigo and improve balance/safety. patient would also benefit from further evaluation of balance gait issues after BPPV is resolved. Plan of Care Interventions Neuro Re-education,Patient/Caregiver Educati, Therapeutic Activities,Therapeutic Exercise,Other Other Interventions CR PT Services Indicated Yes Treatment Frequency and 2x weekly for 4 visits Duration These treatments will address the objective and functional deficits as defined above. The patient will be advanced safely and appropriately in order for the patient to progress towards his/her prior level of function. Additional exercises will be introduced and as well as a comprehensive home exercise program upon discharge, if needed, ?to ensure carryover of functional gains achieved in the clinic. This treatment plan has been reviewed and agreement upon by the patient.
--- NOTE | 2023-09-26 09:36 | OPREHPOC ---
Outpatient Therapy Plan of Care This is a Multidisciplinary Plan of Care that may contain components documented by all disciplines (PT, OT, and ST.) PT Problem 1 PT Problem #1 Knowledge Deficit PT Goal 1 Goal 1. patient to be compliant with home linda to the L and sleeping position Target Visit 2 Progress Met PT Problem 2 PT Problem #2 Impaired Functional Mobil PT Goal 1 Goal 1. patient to report elimination of all vertigo symptoms Target Visit 4 Progress Met
--- NOTE | 2023-09-26 09:37 | PTOPDC ---
Assessment and note entered by JT File, PT Evaluation Information Assessment Status Discharge Diagnosis positional vertigo ICD-10 Condition Codes (PT) BPPV H81.12 Onset 09/09/23 Subjective Information patient reports she has no more dizziness. however , she reports the more recent balance exercises have woken up/used muscles she has not used in a long time. she reports she has no issues getting up and moving first thing in the morning. she reports she has been compliant with her exercises at home. Reported Pain Level Pain Score 0: Self Report Assessment PT Clinical Summary mrs. vargas presents to skilled PT today for her 4th skilled therapy visit for BPPV. she reports today that her symptoms of BPPV are gone. she has been compliant with home linda and cawthorne paulette exercises at home. she was educated today to DC home linda and c[place]th[place] paulette exercises, but continue to work on walking and being more physically active at home. she was educated in plan if symptoms return. she will DC skilled PT today as she has met all goals for skilled PT, and has no BPPV symptoms any longer. Plan of Care PT Services Indicated Yes
== END 2023-09-26 11:33 | disposition home or self-care (01) ==
LOC: CHSPT 14:13
PROVIDERS: Visit Provider Internal Medicine
DX: H81.12 Benign paroxysmal vertigo, left ear (principal)
CPT/HCPCS: 95992; 97110; 97112; 97161; 97530

== ENCOUNTER 2023-12-10 09:30 | Outpatient (CLI) | payer MEDICARE, SELFPAY ==
[2023-12-10 09:43] LABS: Basophils Absolute Auto 0.06 K/mm3 (0.00-0.10); Basophils Percent Auto 0.7 % (0.0-1.0); Eosinophils Absolute Auto 0.24 K/mm3 (0.02-0.50); Hematocrit 41.9 % (35.0-42.0); Immature Granulocyte Absolute 0.03 K/mm3 (0.00-0.00); Immature Granulocyte Percent A 0.4 % (0.0-0.0); Lymphocytes Absolute Auto 2.73 K/mm3 (1.10-4.50); Lymphocytes Percent Auto 33.7 % (18.0-42.0); Mean Corpuscular HGB Conc 33.4 g/dL (32-36); Mean Corpuscular Hemoglobin 29.6 pg (27.0-31.0); Mean Corpuscular Volume 88.6 fL (78.0-102.0); Mean Platelet Volume 8.4 fl (9.2-11.8); Monocytes Absolute Auto 0.66 K/mm3 (0.10-0.90); Monocytes Percent Auto 8.1 % (2.0-11.0); Neutrophils Absolute Auto 4.39 K/mm3 (1.70-7.20); Neutrophils Percent Auto 54.1 % (50.0-70.0); Platelet Count Result 232 K/mm3 (150-420); Red Blood Count 4.73 M/mm3 (4.20-5.40); Red Cell Distribution Width 12.2 % (11.6-14.4); White Blood Count 8.1 K/mm3 (4.8-10.8)
[2023-12-10 10:23] LABS: Hemoglobin A1C 6.4 % (<5.7)
[2023-12-10 10:38] LABS: Alanine Aminotransferase 25 U/L (14-59); Albumin Level 3.8 g/dL (3.4-5.0); Alkaline Phosphatase 79 U/L (46-116); Anion Gap 6 mmol/L (4-12); Aspartate Amino Transferase 29 U/L (15-37); Bilirubin,Total 0.5 mg/dL (0.00-1.00); Blood Urea Nitrogen 17 mg/dL (7-18); Calcium 9.9 mg/dL (8.5-10.1); Carbon Dioxide 33 mmol/L (21-32); Chloride 96 mmol/L (98-108); Cholesterol 186 mg/dL (0-200); Estimated Glomerular Filt Rate > 60; Glucose 128 mg/dL (70-99); HDL Direct 70 mg/dL (40-60); LDL Cholesterol Calculated 61 mg/dL (<130); Osmolality Calculated 283 mOsm/kg (285-295); Potassium 4.8 mmol/L (3.5-5.1); Sodium 135 mmol/L (136-145); Thyroid Stimulating Hormone 1.45 uIU/mL (0.36-3.74); Total Protein 6.4 g/dL (6.4-8.2); Triglycerides 277 mg/dL (0-150)
== END 2023-12-10 09:31 | disposition home or self-care (01) ==
PROVIDERS: PCP Internal Medicine; Visit Provider Internal Medicine
DX: I10 Essential (primary) hypertension (principal); E11.9 Type 2 diabetes mellitus without complications; E78.5 Hyperlipidemia, unspecified
CPT/HCPCS: 36415; 80053; 80061; 83036; 84443; 85025

== ENCOUNTER 2024-06-19 10:55 | Outpatient (CLI) | payer MEDICARE, SELFPAY ==
[2024-06-19 13:22] LABS: Hematocrit 44.7 % (35.0-42.0); Hemoglobin 14.4 g/dL (11.7-13.8); Mean Corpuscular HGB Conc 32.2 g/dL (32-36); Mean Corpuscular Volume 90.1 fL (78.0-102.0); Mean Platelet Volume 8.9 fl (9.2-11.8); Platelet Count Result 287 K/mm3 (150-420); Red Blood Count 4.96 M/mm3 (4.20-5.40); Red Cell Distribution Width 12.4 % (11.6-14.4); White Blood Count 8.4 K/mm3 (4.8-10.8)
[2024-06-19 13:28] LABS: Add Urine Microscopic? YES; Appearance Urine Clear (Clear); Bilirubin Urine Negative (Negative); Blood Urine Negative (Negative); Color Urine Yellow (Yellow); Glucose Urine UA Negative (Negative); Ketones Urine Trace (Negative); Leukocyte Esterase Ur 1+ (Negative); Nitrate Urine Negative (Negative); Protein Urine Trace (Negative); Specific Grav Ur 1.015 (1.010-1.020); Urobilinogen Urine 0.2 mg/dL (0.2-1.0)
[2024-06-19 13:39] LABS: Alanine Aminotransferase 23 U/L (14-59); Alkaline Phosphatase 89 U/L (46-116); Anion Gap 6 mmol/L (4-12); Aspartate Amino Transferase 30 U/L (15-37); Bilirubin,Total 0.6 mg/dL (0.00-1.00); Blood Urea Nitrogen 18 mg/dL (7-18); Carbon Dioxide 32 mmol/L (21-32); Chloride 97 mmol/L (98-108); Cholesterol 200 mg/dL (0-200); Estimated Glomerular Filt Rate 46; Glucose 162 mg/dL (70-99); HDL Direct 80 mg/dL (40-60); LDL Cholesterol Calculated 82 mg/dL (<130); Magnesium 1.5 mg/dL (1.8-2.4); Osmolality Calculated 285 mOsm/kg (285-295); Potassium 4.6 mmol/L (3.5-5.1); Sodium 135 mmol/L (136-145); Total Protein 6.9 g/dL (6.4-8.2); Triglycerides 188 mg/dL (0-150)
[2024-06-19 13:52] LABS: RBC Urine None seen /hpf (0-2)
[2024-06-19 13:53] LABS: Bacteria Urine 2+ /hpf; Hyaline Casts Urine Present /lpf; Squamous Epithelial Cell Urine Many /hpf (Few); WBC Urine 16-20 /hpf (0-3)
[2024-06-19 13:54] LABS: Mucus Urine Present /lpf
[2024-06-19 14:46] LABS: Hemoglobin A1C 6.8 % (<5.7)
--- OUTSIDE RECORDS SUMMARY | 2024-06-20 13:05 | XMS_ITS | Clinical Summary ---
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 Name Role Phone Unavailable Primary Care Provider Unavailabl e Social History Tobacco Use Types Packs/Day Years Used Date Smoking Tobacco: Never Assessed Comments Unknown Sex and Gender Information Value Date Recorded Sex Assigned at Not on file Legal Sex Female 9:17 PM [employer] Gender Identity Not on file Sexual Orientation Not on file Plan of Treatment Health Maintenance Due Date Last Done Comments DTaP, Tdap and Td Vaccines ( 1 - Tdap) [birth year]25/1959 Pneumococcal Vaccine: 50+ Ye ars (1 of 1 - PCV) 1990 Zoster Vaccines (1 of 2) 1990 Dexa Scan (General) 2005 RSV Immunization or 60+ Years (1 - 1-dose 75+ series) 07/25/2015 COVID-19 Vaccine (2023-2 5 season) 2023 Meningococcal B Vaccine Aged Out No l onger eligible based on patient's age to complete this topic Meningococcal Vaccine Aged Out No conrado dominic eligible based on patient's age to complete this topic RSV Immunizations Under 20 Months Aged Out No longer eligible based on patient's age to complete this topic
== END 2024-06-19 10:56 | disposition home or self-care (01) ==
PROVIDERS: PCP Internal Medicine; Visit Provider Internal Medicine
DX: I10 Essential (primary) hypertension (principal); E11.9 Type 2 diabetes mellitus without complications
CPT/HCPCS: 36415; 80053; 80061; 81001; 83036; 83735; 85027